=== PATIENT | male | born 2000 | race Asian ===

== ENCOUNTER 2020-10-17 08:56 | Outpatient (RCR) | payer OTHER, SELFPAY | END 2020-10-31 15:00 | disposition home or self-care (01) | LOC: IMMUN 08:56 | PROVIDERS: Referring Provider Family Medicine; Visit Provider Family Medicine | DX: Z23 Encounter for immunization (principal) ==

== ENCOUNTER 2020-10-17 14:52 | Outpatient (CLI) | payer OTHER, SELFPAY | END 2020-10-17 15:00 | LOC: IMMUN 11-05 08:10 | PROVIDERS: Visit Provider Family Medicine | DX: Z23 Encounter for immunization (principal) | CPT/HCPCS: 0001A; 0031A; 91300; 91303 ==